=== PATIENT | male | born 1960 | race Caucasian/White ===

== ENCOUNTER → 2023-12-08 07:54 | Outpatient (BNVA) | payer MEDICARE, OTHER, SELFPAY | PROVIDERS: PCP Family Medicine; Visit Provider Nurse Practitioner Family | DX: D18.01 Hemangioma of skin and subcutaneous tissue (principal); L82.1 Other seborrheic keratosis; L57.0 Actinic keratosis; D48.5 Neoplasm of uncertain behavior of skin; L82.0 Inflamed seborrheic keratosis | CPT/HCPCS: 17000; 17110; 69100; 99203 ==

== ENCOUNTER → 2024-04-01 11:33 | Outpatient (BNVA) | payer MEDICARE, OTHER, SELFPAY | PROVIDERS: PCP Family Medicine; Visit Provider Nurse Practitioner Family | DX: Z12.5 Encounter for screening for malignant neoplasm of prostate (principal); Z13.6 Encounter for screening for cardiovascular disorders; M54.2 Cervicalgia; K21.9 Gastro-esophageal reflux disease without esophagitis | CPT/HCPCS: 80053; 80061; 82607; 83735; 85025; G0103 ==

== ENCOUNTER 2024-04-14 07:33 | Outpatient (RCR) | payer MEDICARE, SELFPAY | END 2024-04-28 23:59 | disposition home or self-care (01) | LOC: SPT 07:33 | PROVIDERS: PCP Family Medicine; Visit Provider Nurse Practitioner Family | DX: M54.2 Cervicalgia (principal) | CPT/HCPCS: 97110; 97161 ==

== ENCOUNTER → 2024-04-18 09:46 | Outpatient (BNVA) | payer MEDICARE, SELFPAY | PROVIDERS: PCP Nurse Practitioner Family; Visit Provider Nurse Practitioner Family | DX: E87.6 Hypokalemia (principal) | CPT/HCPCS: 80053 ==

== ENCOUNTER 2024-04-29 06:00 | Outpatient (RCR) | payer MEDICARE, SELFPAY | END 2024-05-28 23:59 | disposition home or self-care (01) | LOC: SPT 06:00 | PROVIDERS: PCP Nurse Practitioner Family; Visit Provider Nurse Practitioner Family | DX: M54.2 Cervicalgia (principal) | CPT/HCPCS: 97110 ==

== ENCOUNTER 2024-05-23 13:08 | Outpatient (CLI) | payer MEDICARE, SELFPAY ==
--- NOTE | 2024-05-23 13:15 | USCV_ITS ---
Lucio Granados Age: 63 Gender: M : 1960 Exam Date: 05/23/2024 13:27 Ordering Phys: Debi Aldridge BURNER OPERATOR BURNER OPERATOR Technologist: R Exam Location: [facility] [place] Indication: AAA screening HISTORY: Diameter (cm) AP x Transverse x Length Velocity (cm/s) Waveform Prox Aorta: 1.42 x 1.93 x 37.80 Triphasic Mid Aorta: 1.42 x 1.72 x 44.00 Triphasic Distal Aorta: 1.39 x 1.55 x 48.20 Triphasic Right Iliac Prox: 0.95 x 1.06 x 90.50 Triphasic Left Iliac Prox: 0.71 x 0.91 x 73.30 Triphasic Stent Prox Landing x x Aneurysmal Sac Max x x Lt Lat Sac Dim Rt Lat Sac Dim Stent Dist Landing x x Right Iliac Stent x x Left Iliac Stent x x Right Renal Art Left Renal Art FINDINGS: Comparison: none available. No evidence of abdominal aortic aneurysm. Atherosclerotic plaque is noted in the abdominal aorta. There is evidence of atherosclerotic plaque no significan stenosis in the right common iliac artery. There is evidence of atherosclerotic plaque no significan stenosis in the left common iliac artery. CONCLUSIONS No evidence of abdominal aortic or bilateral iliac aneurysm. Dr. Giuliana Kelly DO (Electronically Signed) Final Date: 23 May 2024 16:09 S
--- NOTE | 2024-05-23 14:00 | CT_ITS ---
WS: [id number] LDCT LUNG CANCER SCREENING HISTORY: F17.210 - Nicotine dependence, cigarettes, uncomplicated TECHNIQUE: Axial imaging performed from the apices to 1 cm below the costophrenic angles. Coronal and sagittal reformats are submitted with axial MIP series. All CT scans at [facility] use at least one of these dose optimization techniques: automated exposure control; mA and/or kV adjustment per patient size (includes targeted exams where dose is matched to clinical indication); or iterativ e reconstruction. DLP: 50.91 mGy.cm DIvol: Mean CTDIvol: 0.90 (mGy) COMPARISON: None available. Diagnostic quality: Satisfactory Lungs: Mild hyperinflation of the lungs. Benign calcified granuloma RIGHT upper lobe. No masses or no dules identified. No endobronchial lesions. Subsegmental atelectasis at the RIGHT lung base. Heart: Normal size heart with no pericardial effusion.. Other findings: Minimal calcified plaque in the aorta. Nondilated pulmonary artery. No adenopathy. Sm all hiatal hernia. No adrenal mass. CT/CT lung screening [id number] IMPRESSION: LUNG-RADS: 2-Benign Appearance or Behavior FOLLOW UP: 12 Month: Continue annual screening with LDCT OTHER FINDINGS (S MODIFIER): None.
== END 2024-05-23 13:09 | disposition home or self-care (01) ==
LOC: RAD 13:09
PROVIDERS: PCP Nurse Practitioner Family; Visit Provider Nurse Practitioner Family
DX: Z12.2 Encounter for screening for malignant neoplasm of respiratory organs (principal); F17.210 Nicotine dependence, cigarettes, uncomplicated; Z00.00 Encounter for general adult medical examination without abnormal findings; J84.10 Pulmonary fibrosis, unspecified; J98.11 Atelectasis; K44.9 Diaphragmatic hernia without obstruction or gangrene
CPT/HCPCS: 71271; 76706

== ENCOUNTER → 2024-07-01 08:24 | Outpatient (BNVA) | payer MEDICARE, SELFPAY | PROVIDERS: PCP Nurse Practitioner Family; Visit Provider Nurse Practitioner Family | DX: L57.8 Other skin changes due to chronic exposure to nonionizing radiation (principal); L82.1 Other seborrheic keratosis; L81.4 Other melanin hyperpigmentation; D22.5 Melanocytic nevi of trunk; L57.0 Actinic keratosis | CPT/HCPCS: 17000; 99213 ==

== ENCOUNTER → 2024-08-26 18:15 | Outpatient (BNVA) | payer MEDICARE, OTHER, SELFPAY | PROVIDERS: PCP Nurse Practitioner Family; Visit Provider Registered Nurse Neonatal Intensive Care | DX: M19.012 Primary osteoarthritis, left shoulder (principal) | CPT/HCPCS: 73030 ==

== ENCOUNTER → 2024-10-27 10:52 | Outpatient (BNVA) | payer MEDICARE, OTHER, SELFPAY | PROVIDERS: PCP Nurse Practitioner Family; Visit Provider Nurse Practitioner Family | DX: E78.5 Hyperlipidemia, unspecified (principal) | CPT/HCPCS: 80053; 80061; 84443; 85025 ==

== ENCOUNTER 2024-11-01 09:52 | Outpatient (CLI) | payer MEDICARE, OTHER, SELFPAY ==
--- NOTE | 2024-11-01 10:15 | MR_ITS ---
WS: [id number] MRI LEFT SHOULDER HISTORY: M25.512 - Pain in left shoulder COMPARISON: Radiograph 08/26/2024 TECHNIQUE: Multiplanar sequences of the shoulder joint are submitted. Moderate AC joint arthritis. AC joint is narrowed. Mild hypertrophic bone formation involving the AC joint. Humeral head is high riding abutting the undersurface of the acromion which appears slightly eroded. No os acromion. Very tiny biceps tendon in the bicipital groove with a split tear. It does appear the biceps tendon is torn and a portion of the tendon is subluxed. No os acromion. High riding humeral head. Moderate narrowing of the glenohumeral joint. Large amount of fluid in the subacromial and subdeltoid bursa in the axillary pouch. Complete full-thickness tear supraspinatus tendon with retraction along the medial humeral head. Moderate to severe supraspinatus muscle atrophy. No significant in atrophy of the infraspinatus tendon but there is increased edema and T2 signal. Complete tear of the infraspinatus tendon retracted to the medial humeral head. Subscapularis tendon is intact. No labral tear. Coracohumeral ligament is intact. MR/MR shoulder LT wo con* [id number] IMPRESSION: 1. Complete, large full-thickness tears with retraction of the tendons involvi ng the supraspinatus and infraspinatus tendons. 2. Moderate to severe supraspinatus muscle atrophy. 3. No significant atrophy of the infraspinatus muscle but there is edema prese nt. 4. Large joint effusion surrounding the humeral head. 5. Moderate AC joint arthritis. 6. Split tear of the biceps tendon. Small portion of the tendon remains in the bicipital groove and a small portion appears subluxed. 7. High riding humeral head. Subacromial impingement.
== END 2024-11-01 09:53 | disposition home or self-care (01) ==
PROVIDERS: PCP Nurse Practitioner Family; Visit Provider Nurse Practitioner Family
DX: M19.012 Primary osteoarthritis, left shoulder (principal); G89.29 Other chronic pain; M75.122 Complete rotator cuff tear or rupture of left shoulder, not specified as traumatic; M62.512 Muscle wasting and atrophy, not elsewhere classified, left shoulder; M25.412 Effusion, left shoulder; S46.212A Strain of muscle, fascia and tendon of other parts of biceps, left arm, initial encounter; X58.XXXA Exposure to other specified factors, initial encounter; M75.42 Impingement syndrome of left shoulder; R93.7 Abnormal findings on diagnostic imaging of other parts of musculoskeletal system
CPT/HCPCS: 73221

== ENCOUNTER → 2024-11-09 14:11 | Outpatient (BNVA) | payer MEDICARE, OTHER, SELFPAY | PROVIDERS: PCP Nurse Practitioner Family; Visit Provider Specialist | DX: M25.512 Pain in left shoulder (principal); S40.012A Contusion of left shoulder, initial encounter; G89.29 Other chronic pain; W19.XXXA Unspecified fall, initial encounter | CPT/HCPCS: 73030; 99204 ==

== ENCOUNTER → 2024-11-30 08:44 | Outpatient (BNVA) | payer MEDICARE, OTHER, SELFPAY | PROVIDERS: PCP Nurse Practitioner Family; Visit Provider Nurse Practitioner Family | DX: L82.1 Other seborrheic keratosis (principal); L57.8 Other skin changes due to chronic exposure to nonionizing radiation; L81.4 Other melanin hyperpigmentation; D22.4 Melanocytic nevi of scalp and neck; L57.0 Actinic keratosis | CPT/HCPCS: 17000; 99213 ==

== ENCOUNTER → 2025-05-31 08:42 | Outpatient (BNVA) | payer MEDICARE, OTHER, SELFPAY | PROVIDERS: PCP Nurse Practitioner Family; Visit Provider Nurse Practitioner Family | DX: L57.8 Other skin changes due to chronic exposure to nonionizing radiation (principal); L81.4 Other melanin hyperpigmentation; L82.1 Other seborrheic keratosis; D18.01 Hemangioma of skin and subcutaneous tissue; L57.0 Actinic keratosis | CPT/HCPCS: 17000; 99213 ==